=== PATIENT | female | born 1965 | race Caucasian/White ===

== ENCOUNTER 2019-07-15 09:08 | Emergency (ER) | payer OTHER ==
--- OUTSIDE RECORDS SUMMARY | 2019-07-15 09:10 | XMS REPORT ---
:1965 Author Organization eClinicalWorks Care Team Providers Name Role Phone Moreno Verduzco Provider Role Unavailable Allergies No Known Allergies Problems Problem Type Condition Code Onset Dates Condition Status Problem Fatigue R53.83 Active Problem Rectus diastasis of lower abdomen M62.08 Active Problem Mixed hyperlipidemia E78.2 Active Problem Panic attacks F41.0 Active Problem Benign essential hypertension I10 Active Problem Malaise R53.81 Active Problem Chronic cough R05 Active Problem Anxiety disorder F41.9 Active Medications No Known Medications Results No Known Results Summary Purpose eClinicalWorks Submission
--- OUTSIDE RECORDS SUMMARY | 2019-07-15 09:10 | XMS REPORT ---
:1965 Author Organization [employer]ClinicalWorks Care Team Providers Name Role Phone Dax Moreno Provider Role Unavailable Allergies, Adverse Reactions, Alerts Substance Reaction Event Type Lisinopril Info Not Available Drug Allergy Cozaar Info Not Available Drug Allergy Problems Problem Type Condition Code Onset Dates Condition Status Assessment Benign essential hypertension I10 Active Problem Fatigue R53.83 Active Assessment Fatigue R53.83 Active Assessment Hypokalemia E87.6 Active Assessment Mixed hyperlipidemia E78.2 Active Assessment Anxiety disorder F41.9 Active Problem Rectus diastasis of lower abdomen M62.08 Active Problem Mixed hyperlipidemia E78.2 Active Problem Panic attacks F41.0 Active Problem Benign essential hypertension I10 Active Problem Malaise R53.81 Active Problem Chronic cough R05 Active Problem Anxiety disorder F41.9 Active Medications Medication Code Code Instructions Start End Status Dosage System Date Date Coreg [facility] 18627915316 25 MG Orally Active 1 tab BID Hydrochlorothiazide [facility] 89727086933 12.5 MG Orally Inactive twice ad Twice a day ay Omeprazole [facility] 44430853412 40 MG Orally Active 1 capsule Once a day Alprazolam [facility] 41652955564 1 MG Orally Active 1 tablet Twice a day Results No Known Results Summary Purpose eClinicalWorks Submission
--- OUTSIDE RECORDS SUMMARY | 2019-07-15 09:10 | XMS REPORT ---
:1965 Author Organization eClinicalWorks Care Team Providers Name Role Phone Dax Moreno Provider Role Unavailable Allergies, Adverse Reactions, Alerts Substance Reaction Event Type Lisinopril Info Not Available Drug Allergy Cozaar Info Not Available Drug Allergy Problems Problem Type Condition Code Onset Dates Condition Status Problem Malaise R53.81 Active Problem Fatigue R53.83 Active Problem Adult BMI 33.0-33.9 kg/sq m Z68.33 Active Problem Rectus diastasis of lower abdomen M62.08 Active Problem Panic attacks F41.0 Active Problem Anxiety disorder F41.9 Active Problem Benign essential hypertension I10 Active Problem Mixed hyperlipidemia E78.2 Active Problem Chronic cough R05 Active Assessment Refused influenza vaccine Z28.21 Active Assessment Colon cancer screening declined Z53.20 Active Assessment Adult BMI 33.0-33.9 kg/sq m Z68.33 Active Assessment Anxiety disorder F41.9 Active Assessment Panic attacks F41.0 Active Assessment Breast screening declined Z53.20 Active Assessment Benign essential hypertension I10 Active Assessment Fatigue R53.83 Active Assessment Encounter for preventative adult Z00.01 Active health care exam with abnormal findings Medications Medication Code System Code Instructions Start End Date Status Dosage Date Lisinopril [facility] 44966251767 10 MG Orally Once Aug 20, Active 2 tablets a day 2019 Alprazolam [facility] 19690925603 1 MG Orally Twice Active 1 tablet a day PRN Anxiety Omeprazole [facility] 96884388122 40 MG Orally Once Active 1 capsule a day Coreg [facility] 09458288934 25 MG Orally BID Active 1 tab Results No Known Results Summary Purpose eClinicalWorks Submission
--- OUTSIDE RECORDS SUMMARY | 2019-07-15 09:10 | XMS REPORT ---
:1965 Author Organization eClinicalWorks Care Team Providers Name Role Phone Moreno Verduzco Provider Role Unavailable Allergies No Known Allergies Problems Problem Type Condition Code Onset Dates Condition Status Assessment Benign essential hypertension I10 Active Problem Fatigue R53.83 Active Problem Rectus diastasis of lower abdomen M62.08 Active Problem Mixed hyperlipidemia E78.2 Active Problem Panic attacks F41.0 Active Problem Benign essential hypertension I10 Active Problem Malaise R53.81 Active Problem Chronic cough R05 Active Problem Anxiety disorder F41.9 Active Medications Medication Code Code Instructions Start End Date Status Dosage System Date Alprazolam [facility] [place] 18754964386 1 MG Orally Active 1 tablet Twice a day PRN Anxiety Omeprazole [facility] [place]] 00378373589 40 MG Orally Active 1 capsule Once a day Lisinopril [facility] [place] [facility] 67778306799 20 MG Orally Aug 06, Active 1 tablet Once a day 2018 Lisinopril [facility] [place] 2[place] 81905527355 10 MG Orally Jul 16, Inactive 1 tablet Once a day 2018 Coreg [facility] [place] 2[place] 08382554521 25 MG Orally BID Active 1 tab Results No Known Results Summary Purpose eClinicalWorks Submission
--- OUTSIDE RECORDS SUMMARY | 2019-07-15 09:10 | XMS REPORT ---
:1965 Author Organization eClinicalWorks Care Team Providers Name Role Phone Dax Moreno Provider Role Unavailable Allergies No Known Allergies [...] Start End Date Status Dosage System Date Lisinopril [facility] 62009877790 10 MG Orally Aug 20, Active 2 tablets Once a day 2018 Lisinopril [facility] 16543593619 20 MG Orally Aug 06, Inactive 1 tablet Once a day 2018 Results No Known Results Summary Purpose eClinicalWorks Submission
--- OUTSIDE RECORDS SUMMARY | 2019-07-15 09:10 | XMS REPORT ---
:1965 Author Organization eClinicalWorks Care Team Providers Name Role Phone Dax Moreno Provider Role Unavailable Allergies, Adverse Reactions, Alerts Substance Reaction Event Type Cozaar Info Not Available Drug Allergy Problems Problem Type Condition Code Onset Dates Condition Status Assessment Benign essential hypertension I10 Active Problem Fatigue R53.83 Active Assessment Panic attacks F41.0 Active Assessment Anxiety disorder F41.9 Active Problem Rectus diastasis of lower abdomen M62.08 Active Problem Mixed hyperlipidemia E78.2 Active Problem Panic attacks F41.0 Active Problem Benign essential hypertension I10 Active Problem Malaise R53.81 Active Problem Chronic cough R05 Active Problem Anxiety disorder F41.9 Active Medications Medication Code Code Instructions Start End Status Dosage System Date Date Alprazolam [facility] 62743169036 1 MG Orally Active 1 tablet Twice a day PRN Anxiety Lisinopril [facility] 89612857112 10 MG Orally Jul 16, Active 1 tablet Once a day 2018 Omeprazole [facility] 64567907194 40 MG Orally Active 1 capsule Once a day Hydrochlorothiazide [facility] 87457328404 12.5 MG Orally Active 1 tablet Twice a day Coreg [facility] 74160300323 25 MG Orally Active 1 tab BID Results No Known Results Summary Purpose eClinicalWorks Submission
--- NOTE | 2019-07-15 11:16 | EDPHYS ---
Physician Documentation [facility] Name: Kavitha Newby Age: 53 yrs Sex: Female : 1965 Arrival Date: 07/15/2019 Time: 09:10 Bed 6 Private MD: Jatin Rayo ED Physician Olayinka Heard HPI: 07/15 10:24 This 53 yrs old Female presents to ER via Ambulatory with complaints of High kdr Blood Pressure, Ear Pain. 10:24 The patient has elevated blood pressure and discovered this The patient has a history kdr of HTN but her control has been poor as of late. She has had changes in her mediation regimen however, she continues to have intermittent spikes in her BP. Onset: The symptoms/episode began/occurred suddenly, this morning. Modifying factors: The symptoms are aggravated by activity, The symptoms are alleviated by Nothing. Associated signs and symptoms: Pertinent positives: headache, nausea, Decreased hearing in her left ear. Severity of symptoms: At its worst the blood pressure was moderate, 167 mm Hg. The patient has not experienced similar symptoms in the past. The patient has not recently seen a physician. Historical: - Allergies: 09:20 Cozaar; sv - Home Meds: 09:20 Xanax 0.5 mg Oral tab 1 tab PRN [Active]; atenolol 50 mg Oral tab 1 tab 2 times per day sv [Active]; - PMHx: 09:20 Hypertension; sv - PSHx: 09:20 None; sv - Immunization history:: Adult Immunizations up to date. - Ebola Screening: : No symptoms or risks identified at this time. ROS: 10:24 Constitutional: Negative for fever, chills, and weight loss, Eyes: Negative for injury, kdr pain, redness, and discharge, Neck: Negative for injury, pain, and swelling, Cardiovascular: Negative for chest pain, palpitations, and edema, Respiratory: Negative for shortness of breath, cough, wheezing, and pleuritic chest pain, Abdomen/GI: Negative for abdominal pain, nausea, vomiting, diarrhea, and constipation, Back: Negative for injury and pain, : Negative for injury, bleeding, discharge, and swelling, MS/Extremity: Negative for injury and deformity, Skin: Negative for injury, rash, and discoloration. 10:24 ENT: Positive for hearing loss, of the left ear. Exam: 10:24 Constitutional: This is a well developed, well nourished patient who is awake, alert, kdr and in no acute distress. Head/Face: Normocephalic, atraumatic. Eyes: Pupils equal round and reactive to light, extra-ocular motions intact. Lids and lashes normal. Conjunctiva and sclera are non-icteric and not injected. Cornea within normal limits. Periorbital areas with no swelling, redness, or edema. Neck: Trachea midline, no thyromegaly or masses palpated, and no cervical lymphadenopathy. Supple, full range of motion without nuchal rigidity, or vertebral point tenderness. No Meningismus. Chest/axilla: Normal chest wall appearance and motion. Nontender with no deformity. No lesions are appreciated. Cardiovascular: Regular rate and rhythm with a normal S1 and S2. No gallops, murmurs, or rubs. Normal PMI, no JVD. No pulse deficits. Respiratory: Lungs have equal breath sounds bilaterally, clear to auscultation and percussion. No rales, rhonchi or wheezes noted. No increased work of breathing, no retractions or nasal flaring. Abdomen/GI: Soft, non-tender, with normal bowel sounds. No distension or tympany. No guarding or rebound. No evidence of tenderness throughout. Back: No spinal tenderness. No costovertebral tenderness. Full range of motion. Skin: Warm, dry with normal turgor. Normal color with no rashes, no lesions, and no evidence of cellulitis. MS/ Extremity: Pulses equal, no cyanosis. Neurovascular intact. Full, normal range of motion. Psych: Awake, alert, with orientation to person, place and time. Behavior, mood, and affect are within normal limits. Vital Signs: 09:20 BP 151 / 89; Pulse 56; Resp 18; Pulse Ox 98% ; Weight 89.81 kg; Height 5 ft. 6 in. sv (167.64 cm); Pain 0/10; 09:20 Body Mass Index 31.96 (89.81 kg, 167.64 cm) sv MDM: 10:24 Data reviewed: vital signs, nurses notes, lab test result(s), radiologic studies. kdr Counseling: I had a detailed discussion with the patient and/or guardian regarding: the historical points, exam findings, and any diagnostic results supporting the discharge/admit diagnosis, lab results, radiology results. 11:14 Patient medically screened. kdr 11:20 ED course: The patient was much improved with the interventions given. She was happy kdr with the care provided and the plan for discharge and follow-up. Administered Medications: No medications were administered Disposition: 07/15/19 11:14 Discharged to Home. Impression: HTN, poorly controlled; Impacted cerumen - left ear - resolved. - Condition is Stable. - Discharge Instructions: Hypertension. - Prescriptions for Coreg 25 mg Oral tablet - take 1 tablet by ORAL route 2 times per day with food; 14 tablet. - Medication Reconciliation Form, Thank You Letter form. - Follow up: Jatin Rayo MD; When: 2 - 3 days; Reason: If symptoms return, Further diagnostic work-up, Recheck today's complaints, Continuance of care, Re-evaluation by your physician. - Problem is new. - Symptoms have improved. Signatures: Lydia Medina RN RN Olayinka Heard MD MD kdr Jenna Chandra RN RN hb Corrections: (The following items were deleted from the chart) 11:29 11:14 07/15/2019 11:14 Discharged to Home. Impression: HTN, poorly controlled; Impacted hb cerumen - left ear - resolved. Condition is Stable. Forms are Medication Reconciliation Form, Thank You Letter, Antibiotic Education, Prescription Opioid Use. Follow up: Jatin Rayo; When: 2 - 3 days; Reason: If symptoms return, Further diagnostic work-up, Recheck today's complaints, Continuance of care, Re-evaluation by your physician. Problem is new. Symptoms have improved. kdr
--- NOTE | 2019-07-15 11:16 | ER ---
Nurse's Notes [facility] Name: Kavihta Newby Age: 53 yrs Sex: Female : 1965 Arrival Date: 07/15/2019 Time: 09:10 Bed 6 Private MD: Jatin Rayo Diagnosis: HTN, poorly controlled; Impacted cerumen - left ear - resolved Presentation: 07/15 09:17 Presenting complaint: Patient states: HTN, left ear unable to hear out of, bilateral sv ear ringing since being switched to Atenolol a few weeks ago. Transition of care: patient was not received from another setting of care. Onset of symptoms was July 15, 2019. Risk Assessment: Do you want to hurt yourself or someone else? Patient reports no desire to harm self or others. Care prior to arrival: None. 09:17 Method Of Arrival: Ambulatory sv 09:17 Acuity: KADE 3 sv 09:21 Initial Sepsis Screen: Does the patient meet any 2 criteria? No. Patient's initial sv sepsis screen is negative. Does the patient have a suspected source of infection? No. Patient's initial sepsis screen is negative. Triage Assessment: 09:20 General: Appears in no apparent distress. comfortable, well groomed, well developed, sv Behavior is calm, cooperative, appropriate for age. Pain: Denies pain. EENT: Reports decreased hearing in left ear ringing in left ear and right ear. Neuro: Level of Consciousness is awake, alert, obeys commands, Oriented to person, place, time, situation, Moves all extremities. Full function Gait is steady, Speech is normal. Respiratory: Airway is patent Respiratory effort is even, unlabored, Respiratory pattern is regular, symmetrical. Derm: Skin is pink, warm \T\ dry. Musculoskeletal: Range of motion: intact in all extremities. Historical: - Allergies: 09:20 Cozaar; sv - Home Meds: 09:20 Xanax 0.5 mg Oral tab 1 tab PRN [Active]; atenolol 50 mg Oral tab 1 tab 2 times per day sv [Active]; - PMHx: 09:20 Hypertension; sv - PSHx: 09:20 None; sv - Immunization history:: Adult Immunizations up to date. - Ebola Screening: : No symptoms or risks identified at this time. Screenin:21 Abuse screen: Denies threats or abuse. Denies injuries from another. Nutritional sv screening: No deficits noted. Tuberculosis screening: No symptoms or risk factors identified. Fall Risk None identified. Vital Signs: 09:20 BP 151 / 89; Pulse 56; Resp 18; Pulse Ox 98% ; Weight 89.81 kg; Height 5 ft. 6 in. sv (167.64 cm); Pain 0/10; 09:20 Body Mass Index 31.96 (89.81 kg, 167.64 cm) sv ED Course: 09:10 Patient arrived in ED. as 09:10 Jatin Rayo MD is Private Physician. as 09:17 Lydia Medina RN is Primary Nurse. sv 09:19 Triage completed. sv 09:20 Arm band placed on. sv 09:21 Patient has correct armband on for positive identification. Placed in gown. Bed in low sv position. Call light in reach. Pulse ox on. NIBP on. Door closed. Head of bed elevated. 09:22 Awaiting ED provider evaluation. sv 09:30 Olayinka Heard MD is Attending Physician. kdr 09:43 ED physician to see patient. sv 10:00 Report given to Brianna ZULUAGA. sv 11:13 Jatin Rayo MD is Referral Physician. kdr 11:28 No provider procedures requiring assistance completed. Patient did not have IV access hb during this emergency room visit. Administered Medications: No medications were administered Outcome: 11:14 Discharge ordered by . kdr 11:28 Discharged to home ambulatory. hb 11:28 Condition: stable 11:28 Discharge instructions given to patient, Instructed on discharge instructions, follow up and referral plans. medication usage, Demonstrated understanding of instructions, follow-up care, medications, Prescriptions given X 1. 11:29 Patient left the ED. hb Signatures: Lydia Medina, ZAN ZULUAGA sv Olayinka Heard MD MD kdr Bernarda Jessica Heather, RN RN hb
[2019-07-15 11:36] VITALS: BP 151/89; O2SAT 98
== END 2019-07-15 11:29 | disposition home or self-care (01) ==
LOC: ER 09:08
DX: H61.22 Impacted cerumen, left ear (principal); I11.0 Hypertensive heart disease with heart failure; Z88.8 Allergy status to other drugs, medicaments and biological substances
CPT/HCPCS: 99283